=== PATIENT | female | born 1995 | race Caucasian/White ===

== ENCOUNTER 2018-11-07 21:01 | Emergency (ER) | payer OTHER ==
[~2018-11-07] VITALS: Ht 154.9 cm; Wt 52.3 kg
[2018-11-07 21:05] VITALS: Ht 154.9 cm; Wt 52.3 kg
[2018-11-07] MEDS ORDERED: KETOROLAC 30 MG INJ IV STA (21:29)
[2018-11-07] MEDS ORDERED: SOD CHLORIDE 0.9% 1,000 ML IV STA (21:29)
[2018-11-07] MEDS ORDERED: ONDANSETRON 4 MG INJ IV STA ×2 (21:29→22:38)
[2018-11-07] MEDS ORDERED: morphine 2 MG INJ IV STA ×2 (21:29→22:38)
--- NOTE | 2018-11-07 23:17 | ERD ---
ER Documentation Chief Complaint Chief Complaint Code haleigh,c/o lower back pain after turning a patient while working in [place] HPI This is a 23-year-old female who works as a nurse at [employer]. The patient stated she was on shift when she had turned to scan the patient's wristband when she felt a sudden pain in her mid back. She stated it was a cramping-like sensation with spasms. The pain was 10 out of 10 in intensity. She states she is never had any similar pain in the past. She denies any saddle anesthesia. She has no changes in her bladder or bowel frequency. She has had no trauma to her lower back. The patient was called as a code green and immediately brought to the emergency department for further evaluation. The patient has no past medical history. ROS All systems reviewed and are negative except as per history of present illness. Allergies Allergies: Coded Allergies: No Known Allergy (Unverified , 11/07/18) PMhx/Soc Medical and Surgical Hx: pt denies Medical Hx, pt denies Surgical Hx Hx Alcohol Use: No Hx Substance Use: No Hx Tobacco Use: No Smoking Status: Never smoker Physical Exam Vitals Vital Signs Date Temp Pulse Resp B/P (MAP) Pulse Ox O2 O2 Flow FiO2 Time Delivery Rate 11/07/18 98.1 93 18 132/87 96 21:05 (102) Physical Exam Constitutional:Well-developed. Well-nourished. Patient tearful and appeared to be in a significant amount of discomfort secondary to pain Respiratory: Not using accessory muscles of respiration.Lungs were clear to auscultation bilaterally. No rhonchi. No rales. No wheezing. Cardiovascular: Regular rate regular rhythm.No murmurs. No rubs were appreciated.S1, S2 normal. Distal pulses are palpable 2+ bilaterally. GI: Abdomen was soft. Nontender. Non Distended. No pulsatile abdominal masses or bruits. No rebound. No guarding. Bowel sounds were present and normal. Muscle skeletal: Full range of motion of both the upper and lower extremities bilaterally.Normal muscle tone.No assymetrical calf tenderness or swelling. Tenderness with palpation over [id number] and L4-L5 with no step-offs. Skin: No petechia, no purpura. No lesions on the palms or the soles of the feet. No maculopapular rash. NEURO: Patient was alert, awake, orientated x3.No facial droop. Gait not observed as patient was in too much discomfort to ambulate.Speech had regular rate and rhythm. No focal neurological deficits. Results 24 hrs Laboratory Tests Test 11/07/18 22:17 POC Beta HCG, Qualitative NEGATIVE Current Medications Medications Dose Sig/Bhavin Start Time Status Last (Trade) Ordered Route PRN Stop Time Admin Dose Reason Admin Sodium 1,000 ml @ Q1H STAT 11/07/18 DC 11/07/18 Chloride 1,000 mls/hr IV 21:29 21:40 11/07/18 22:28 Morphine 2 mg ONCE STAT 11/07/18 DC 11/07/18 Sulfate IV 21:29 21:39 (morphine) 11/07/18 21:31 Ondansetron 4 mg ONCE STAT 11/07/18 DC 11/07/18 HCl (Zofran IV 21:29 21:39 Inj) 11/07/18 21:31 Ketorolac 30 mg ONCE STAT 11/07/18 DC 11/07/18 Tromethamine IV 21:29 22:21 (Toradol) 11/07/18 21:31 Morphine 2 mg ONCE STAT 11/07/18 DC Sulfate IV 22:38 (morphine) 11/07/18 22:39 Ondansetron 4 mg ONCE STAT 11/07/18 DC HCl (Zofran IV 22:38 Inj) 11/07/18 22:39 Procedures/MDM The patient presented to the emergency department with back pain. My differential diagnosis included but was not limited to spinal origins of the pain such as fracture, osteomyelitis, epidural abscess, neoplasm, spondylolishtesis, discogenic, cauda equina syndrome or musculoligamentous. Nonspinal causes such as AAA, upper UTI, renal colic, aortic dissection, abdominal neoplasm were also considered as an etiology into their pain. The patient underwent radiographic imaging that was reviewed by both myself and the radiologist of the thoracic and lumbar spine with no evidence of fracture. I felt her symptoms are likely result of a muscle spasm. She was given intravenous morphine Toradol and her pain is significantly improved. She was now able to ambulate without any difficulty. The patient was discharged home in fair condition. They were instructed to return to the emergency department at any time if there was any worsening of their condition. The patient stated they would follow up with their PCP in the next 24-48 hours to initiate a suitable medication regimen under the care of their PCP as well as to allow their PCP to monitor any drug reactions. The patient was discharged home with prescriptions after they gave informed consent to the new medication. They were also fully informed by myself on the adverse effects and adverse drug interactions in order to provide adequate safeguards to prevent possible adverse reactions to medicat ions. Departure Diagnosis: Primary Impression: Muscle spasm Additional Impression: Strain of thoracic spine Condition: RILEY Licona MD Nov 07, 2018 23:17
[2018-11-07] MEDS ORDERED: IBUP-1542 PO (23:18)
[2018-11-07] MEDS ORDERED: CYCL10TA7 PO (23:23)
[2018-11-08 00:03] VITALS: BP 116/78; PULSE 78; RESP 18
== END 2018-11-08 00:32 | disposition home or self-care (01) ==
LOC: E/R 21:01
DX: S29.012A Strain of muscle and tendon of back wall of thorax, initial encounter (principal); M62.830 Muscle spasm of back; X58.XXXA Exposure to other specified factors, initial encounter; Y92.239 Unspecified place in hospital as the place of occurrence of the external cause
CPT/HCPCS: 72072; 72100; 81025; 96374; 96375; 99284; J1885; J2270; J2405; J7030

== ENCOUNTER 2019-03-11 01:16 | Emergency (ER) | payer SELFPAY ==
[~2019-03-11] VITALS: Ht 154.9 cm; Wt 52.3 kg
[~2019-03-11 01:16] MED LIST: BEN25 PO; CYCL10TA7 PO; FAMO-96 PO; IBUP-1542 PO; LORA10TA3 PO; PRED20TA PO
[2019-03-11 01:19] VITALS: Ht 154.9 cm; Wt 52.3 kg
[2019-03-11] MEDS ORDERED: LORATADINE 10 MG TAB PO ONE (01:30)
[2019-03-11] MEDS ORDERED: FAMOTIDINE 20 MG TAB PO ONE (01:30)
[2019-03-11] MEDS ORDERED: METHYLPREDNISOLONE 125 MG INJ IM ONE (01:30)
[2019-03-11 02:36] VITALS: BP 123/77; PULSE 58; RESP 16
== END 2019-03-11 02:07 | disposition home or self-care (01) ==
LOC: FTE 01:16
DX: L50.0 Allergic urticaria (principal)
CPT/HCPCS: 96372; 99284; J2930